=== PATIENT | female | born 1965 | race Caucasian/White ===

== ENCOUNTER → 2018-07-18 | Outpatient (CLI) | payer OTHER ==
[~2018-07-18] VITALS: Ht 132.1 cm; Wt 74.8 kg
[~2018-07-18] MED LIST: SODIUM CHLORIDE 0.9% 1,000 ML IV SCH
[2018-07-18 16:45] VITALS: BP 173/85
[2018-07-19 12:07] LABS: Hematocrit 43.1 % (36.0-46.0); Hemoglobin 14.4 g/dL (12.2-16.2); Mean Corpuscular Hemoglobin 30.3 pg (28.0-32.0); Mean Corpuscular Hgb Conc. 33.4 g/dL (32.0-36.0); Mean Corpuscular Volume 90.9 fL (80.0-100.0); Platelet Count (auto) 318 10^3/uL (140-450); Red Blood Cells 4.74 10^6/uL (4.0-5.20); Red Cell Distribution Width 13.7 % (11.8-14.3); White Blood Cell 6.3 10^3/uL (4.4-10.8)
[2018-07-19 12:19] LABS: Calcium 9.2 mg/dL (8.5-10.1); Potassium 4.1 mmol/L (3.5-5.1)
[2018-07-19 12:34] LABS: Band Neutrophils % (manual) 2; Basophils % (manual) 0 (0.0-2.0); Blast Cells 0; Eosinophils % (manual) 0 (0-7); Lymphocytes % (manual) 28 (10.0-50.0); Metamyelocytes % 0; Monocytes % (manual) 6 (0-12); Myelocytes % 0; Promyelocytes % 0; Reactive Lymphocytes 0
== END | disposition home or self-care (01) ==
LOC: Rad HDHVI 16:01
PROVIDERS: ATTEND Internal Medicine Cardiovascular Disease
DX: K57.30 Diverticulosis of large intestine without perforation or abscess without bleeding (principal); N28.9 Disorder of kidney and ureter, unspecified; R77.9 Abnormality of plasma protein, unspecified; I10 Essential (primary) hypertension; D64.9 Anemia, unspecified; R19.09 Other intra-abdominal and pelvic swelling, mass and lump
CPT/HCPCS: 36415; 71046; 74177; 80048; 82565; 84155; 84165; 85007; 85027; G0463; J7050; 96360